=== PATIENT | male | born 1945 | race Caucasian/White ===

== ENCOUNTER 2017-01-05 13:15 | Emergency (ER) | payer MEDICARE, OTHER ==
[~2017-01-05 13:15] MED LIST: ALPRAZOLAM0.5 MG PO; ASPIRIN81 MG PO; ATENOLOL25 MG PO; BABY ASPIRIN81 MG PO; CARDURA4 MG PO; CELEXA40 MG PO; CLARITIN10 M2 PO; DOXAZOSIN MESYLA8 MG PO; ENTERIC ASPIRIN81 MG PO; FLOMAX0.4 MG PO; FLUNISOLIDE25 M2; FLUNISOLIDE25 M2 NS; FLUNISOLIDE25 ML INH; FUROSEMIDE40 M1 PO; HYDROCODONE/APA1 CAP PO; IPRATROPIUM BRO15 ML NS; K-DUR10 ME1 PO; LISINOPRIL-HCTZ PO; LISINOPRIL10 MG PO; MOTRIN800 MG PO; MULTIVITAMIN W/1 T PO; MULTIVITAMIN1 TAB PO; NAPROXEN375 MG PO; NEURONTIN100 MG PO; NORCO 5/325 TAB1 TAB PO; OCEAN45 ML INH; OMEPRAZOLE20 MG PO; TYLENOL325 MG PO; TYLENOL500 MG PO; TYLENOL650 MG PO; VITAMIN D32000 UNI1 PO; XANAX0.25 MG PO; [UNRECOGNIZED DRUG - OTHER] NS
[2017-01-05 13:57] LABS: BASO % 0.4 % (0-2); EOS % 2.9 % (0-7); EOSINOPHIL ABSOLUTE COUNT 0.2 tho/cmm (0.0-0.7); HCT-HEMATOCRIT 39.2 % (36.0-53.5); HGB-HEMOGLOBIN 13.7 gm/dl (13.5-17.0); IMMATURE GRANULOCYTES ABSOLUTE 0.02 tho/cmm (0-0.03); IMMATURE GRANULOCYTES PERCENT 0.3 % (0-0.3); LYMPH % 33.7 % (20-45); LYMPH ABSOLUTE COUNT 2.5 tho/cmm (0.8-4.5); MCH (MEAN CORPUSCULAR HGB) 30.9 pg (28.0-32.0); MCHC MEAN CORPUSCULAR HGB CONC 34.9 % (32.0-36.0); MCV (MEAN CELL VOLUME) 88.3 fl (82.0-96.0); MONO % 11.4 % (0-12); MONOCYTE ABSOLUTE COUNT 0.8 tho/cmm (0.0-1.2); NEUTROPHIL ABSOLUTE COUNT 3.8 tho/cmm (1.6-8.0); NEUTROPHIL-AUTOMATED 3.8 tho/cmm (1.6-8.0); NEUTROPHILS % 51.3 % (40-80); PLATELET COUNT 186 tho/cmm (150-450); RED BLOOD COUNT 4.44 mil/cmm (4.40-5.70); RED CELL DISTRIBUTION WIDTH 13.1 % (12.4-16.4); WHITE BLOOD COUNT 7.3 tho/cmm (4.0-10.0)
[2017-01-05] MEDS ORDERED: POTASSIUM CHLO10 ME2 PO (14:03)
[2017-01-05] MEDS ORDERED: KEFLEX500 M4 PO (14:04)
[2017-01-05] MEDS ORDERED: NYSTATIN15 G1 TOP (14:04)
[2017-01-05] MEDS ORDERED: PROAIR HFA8.5 GM INH (14:05)
[2017-01-05] MEDS ORDERED: LASIX80 M1 PO (14:06)
[2017-01-05] MEDS ORDERED: CELEXA40 M2 PO (14:06)
[2017-01-05] MEDS ORDERED: PROSCAR5 M1 PO (14:06)
[2017-01-05 14:17] LABS: ALB/GLOB RATIO 0.8 (0.8-2.0); ALBUMIN 3.2 g/dl (3.5-5.0); ALKALINE PHOSPHATASE 106 U/L (33-138); ALT/SGPT 95 U/L (12-78); ANION GAP 12 mmol/L (0-20); AST/SGOT 74 U/L (10-40); BILIRUBIN,TOTAL 0.7 mg/dl (0.0-1.5); BLOOD UREA NITROGEN 16 mg/dl (6-24); CALCIUM 8.6 mg/dl (8.5-10.5); CARBON DIOXIDE-VENOUS 26 mmol/L (22-32); CHLORIDE 110 mmol/l (96-110); CREATININE 0.82 mg/dl (0.60-1.30); GLUCOSE 119 mg/dL (70-110); POTASSIUM 3.7 mmol/L (3.7-5.1); SODIUM 144 mmol/L (135-145); eGFR VALUE FOR BLACK >90 mL/Min
[2017-01-05] MEDS ORDERED: PROTONIX40 M2 PO (14:22)
[2017-01-05] MEDS ORDERED: TENORMIN25 M1 PO (14:22)
[2017-01-05] MEDS ORDERED: ASPIRIN EC81 MG PO (14:22)
[2017-01-05] MEDS ORDERED: VITAMIN D32000 UNI3 PO (14:22)
[2017-01-05] MEDS ORDERED: FLONASE ALLERG9.9 ML (14:24)
[2017-01-05] MEDS ORDERED: CLARITIN10 M6 PO (14:25)
[2017-01-05] MEDS ORDERED: IPRATROPIUM BRO30 M1 (14:25)
[2017-01-05] MEDS ORDERED: TAB-A-VITE-MIN1 EACH PO (14:26)
[2017-01-05] MEDS ORDERED: MINIPRESS2 M1 PO (14:27)
[2017-01-05] MEDS ORDERED: ZOLOFT100 M1 PO (14:27)
[2017-01-05] MEDS ORDERED: DEEP SEA45 M1 (14:28)
== END 2017-01-05 16:38 ==
LOC: EDMED 13:15
PROVIDERS: Emergency Medicine
DX: R07.9 Chest pain, unspecified (principal)
CPT/HCPCS: Q9967